=== PATIENT | female | born 1960 | race Caucasian/White ===

== ENCOUNTER → 2016-11-19 | Outpatient (CLI) | payer OTHER ==
[~2016-11-19] VITALS: Ht 172.7 cm; Wt 102.5 kg
[~2016-11-19] MED LIST: AMITIZA8 MCG PO; BYSTOLIC10 MG PO; CURCUMIN PO; CYMBALTA; CYMBALTA 30MG30 MG PO; CYMBALTA 60MG60 MG PO; DAZIDOX10 MG PO; DITROPAN 5MG TAB5 MG PO; FLOVENT DI50 MCG/Act IH; HCTZ 25MG TAB25 MG PO; INDERAL LA120 MG PO; INDERAL LA160 MG PO; JANUMET 500 MG-1 TA1 PO; KLONOPIN 0.5MG0.5 MG PO; KRILL OIL PO; LASIX 20MG TABL20 MG PO; LOMOTIL 0.025 M1 TAB PO; LORTAB 5/500 501 TAB PO; MAXZIDE-25MG TA1 TAB PO; MELAT3MGTAB; MIDRIN; MIDRIN 325 MG-11 CAP PO; MIRAPEX 1MG; MIRAPEX 1MG PO; NATURE'S BLE1000 MCG PO; NATURE'S BLEND500 M1 PO; NIACIN250 M2 PO; OXYCONTIN 10MG10 MG PO; PAXIL 30MG30 MG PO; PERCOCET 325 MG1 TAB PO; PERCOCET 500 MG1 TAB PO; POTASSIUM CH2 MEQ/ML PO; POTASSIUM PO; REGLAN 10MG10 MG/TAB PO; REGLAN 5MG T5 MG/TAB PO; REGLAN 5MG5 MG PO; RESTASIS 0.4 M0.4 M1 OP; RESTASIS 0.4 M0.4 ML OU; RHODIOLA PO; ROXICODONE15 MG PO; SYNTHROID0.075 MG/T PO; SYNTHROID0.1 MG/TAB PO; TIZANIDINE; TRIAMTERENE W/H1 TA1 PO; ULTRAM 50MG TAB50 MG PO; VALIUM 5MG T5 MG/TAB PO; VENTOLIN0.09 MG IH; WELLBUTRIN SR150 M1 PO; ZOFRAN ODT4 MG PO; ZOFRAN8 MG PO; [UNRECOGNIZED DRUG - OTHER]; [UNRECOGNIZED DRUG - OTHER] PO; [UNRECOGNIZED DRUG - OTHER] PO; [UNRECOGNIZED DRUG - OTHER] PO; triamterene
[2016-11-19 12:34] VITALS: PULSE 71
[2016-11-19 12:39] VITALS: BP 155/99; PULSE 71
[2016-11-19 13:37] VITALS: BP 153/81; PULSE 69
== END ==
LOC: COL.RAD 11:52
DX: D34 Benign neoplasm of thyroid gland (principal)
CPT/HCPCS: 13756

== ENCOUNTER → 2017-01-01 | Outpatient (CLI) | payer OTHER | LOC: MC.RAD 15:00 | DX: Z12.31 Encounter for screening mammogram for malignant neoplasm of breast (principal); N64.89 Other specified disorders of breast ==

== ENCOUNTER → 2017-01-22 | Outpatient (CLI) | payer OTHER | LOC: MC.RAD 01-17 09:45 | DX: R92.8 Other abnormal and inconclusive findings on diagnostic imaging of breast (principal) ==

== ENCOUNTER → 2017-07-01 | Outpatient (CLI) | payer OTHER | LOC: COL.RAD 06-17 13:15 | DX: M47.814 Spondylosis without myelopathy or radiculopathy, thoracic region (principal); G89.29 Other chronic pain ==

== ENCOUNTER 2017-09-20 13:15 | Outpatient (RCR) | payer OTHER | END 2017-10-20 | disposition home or self-care (01) | LOC: MKS.ESL.PT | DX: N31.8 Other neuromuscular dysfunction of bladder (principal); N81.84 Pelvic muscle wasting; M79.1 Myalgia ==

== ENCOUNTER → 2019-07-16 | Outpatient (CLI) | payer OTHER | LOC: COL.RAD 08:00 | DX: R13.10 Dysphagia, unspecified (principal); Z98.890 Other specified postprocedural states ==